=== PATIENT | female | born 1990 | race African-American/Black ===

== ENCOUNTER 2016-07-20 21:12 | Emergency (ER) | payer OTHER ==
[~2016-07-20] VITALS: Ht 165.1 cm; Wt 77.1 kg
[2016-07-20] MEDS: NS 1,000 ML IV ONE (21:50)
[2016-07-20 21:51] LABS: BASO % 0.7 % (0.0-1.0); EOS # 0.2 K/mm3 (0.0-0.50); EOS % 2.9 % (0.0-3.0); LARGE UNSTAINED CELL # 0.1 K/mm3 (0.0-0.4); LYMPH # 3.8 K/mm3 (1.5-6.5); LYMPH % 53.4 % (24.0-44.0); MEAN CORPUSCULAR HEMOGLOBIN 30.1 pg (27.0-33.0); MEAN CORPUSCULAR HGB CONC 33.1 g/dl (32.0-36.5); MEAN CORPUSCULAR VOLUME 90.9 fl (80.0-96.0); MONO # 0.3 K/mm3 (0.0-0.8); MONO % 4.3 % (0.0-5.0); NEUTROPHILS # 2.5 K/mm3 (1.8-7.7); NEUTROPHILS % 36.8 % (36.0-66.0); PLATELET COUNT, AUTOMATED 277 k/mm3 (150-450); RED CELL DISTRIBUTION WIDTH 13.2 % (11.5-14.5); WHITE BLOOD COUNT 6.8 K/mm3 (4.0-10.0)
[2016-07-20 22:02] LABS: ANION GAP 6 MEQ/L (8-16); BLOOD UREA NITROGEN 14 MG/DL (7-18); CALCIUM LEVEL 8.9 MG/DL (8.5-10.1); CARBON DIOXIDE LEVEL 27 MEQ/L (21-32); CHLORIDE LEVEL 106 MEQ/L (98-107); CREATININE FOR GFR 0.76 MG/DL (0.55-1.02); GLOMERULAR FILTRATION RATE > 60.0 (>60); GLUCOSE, FASTING 158 MG/DL (70-105); POTASSIUM SERUM 3.8 MEQ/L (3.5-5.1); SODIUM LEVEL 139 MEQ/L (136-145)
[2016-07-20 23:33] VITALS: BP 106/58
--- NOTE | 2016-07-21 08:16 | REP ---
Portable chest: The lung hidalgo are clear. The cardiac size is normal. The felicia, mediastinum, and bony thorax are unremarkable. Impression: Negative portable chest. Signed by Joel Dobbs MD 07/21/2016 08:09 A
--- NOTE | 2016-07-21 18:30 | ECGEPIP ---
Stationary ECG Study [facility] - ED Test Date: 2016-07-20 Pat Name: AILIN DA SILVA Department: Room: - Gender: F Warp Yarn Sorter: [facility] : 1990 Requested By: KEHINDE SHANKAR Order Number: [id number] Reading MD: Hector Tanner Measurements Intervals [place] Rate: 72 P: 51 [place]: 161 QRS: 20 QRSD: 86 T: 32 QT: 369 QTc: 406 Interpretive Statements SINUS RHYTHM WITH SINUS ARRHYTHMIA POSSIBLE LAE NONSPECIFIC T-WAVE ABNORMALITY NO PRIORS Electronically Signed On 07-21-2016 18:30:02 EDT by Hector Tanner
== END 2016-07-20 23:41 | disposition home or self-care (01) ==
LOC: EDBD 21:12 → M ED 21:31
DX: S46.312A Strain of muscle, fascia and tendon of triceps, left arm, initial encounter (principal); X58.XXXA Exposure to other specified factors, initial encounter; Y92.89 Other specified places as the place of occurrence of the external cause; Y93.89 Activity, other specified; Y99.9 Unspecified external cause status

== ENCOUNTER 2016-10-05 14:50 | Inpatient (IN) | payer OTHER ==
[~2016-10-05] VITALS: Ht 165.1 cm; Wt 7.0 kg
[2016-10-05 15:44] LABS: MEAN CORPUSCULAR HEMOGLOBIN 30.8 pg (27.0-33.0); MEAN CORPUSCULAR HGB CONC 34.1 g/dl (32.0-36.5); MEAN CORPUSCULAR VOLUME 90.4 fl (80.0-96.0); RED CELL DISTRIBUTION WIDTH 13.4 % (11.5-14.5); WHITE BLOOD COUNT 5.4 K/mm3 (4.0-10.0)
[2016-10-05 16:06] LABS: METHADONE URINE NEGATIVE (NEGATIVE)
[2016-10-05 16:11] LABS: CONTROL LINE HCG INT CTR LINE PRESENT
[2016-10-05 16:15] LABS: ALBUMIN/GLOBULIN RATIO 1.21 (1.00-1.93); ALKALINE PHOSPHATASE 65 U/L (45-117); ALT/SGPT 24 U/L (12-78); ANION GAP 5 MEQ/L (8-16); AST/SGOT 25 U/L (15-37); BILIRUBIN,DIRECT 0.2 MG/DL (0.0-0.2); BILIRUBIN,TOTAL 0.6 MG/DL (0.2-1.0); BLOOD UREA NITROGEN 10 MG/DL (7-18); CARBON DIOXIDE LEVEL 28 MEQ/L (21-32); CHLORIDE LEVEL 107 MEQ/L (98-107); CREATININE FOR GFR 0.76 MG/DL (0.55-1.02); GLOMERULAR FILTRATION RATE > 60.0 (>60); GLUCOSE, FASTING 75 MG/DL (70-105); POTASSIUM SERUM 4.2 MEQ/L (3.5-5.1); SODIUM LEVEL 140 MEQ/L (136-145); TOTAL PROTEIN 7.3 GM/DL (6.4-8.2)
[2016-10-05 20:03] VITALS: BP 133/85
[2016-10-05] MEDS ORDERED: ACETAMINOPHEN TAB 650MG DOSE (2X325MG) PO PRN (20:45)
[2016-10-05] MEDS ORDERED: MOM 30ML SUSPENSION UDC PO PRN (20:45)
[2016-10-05] MEDS ORDERED: traZODone 50 MG TAB PO PRN (20:45)
[2016-10-05] MEDS ORDERED: MAALOX 30 ML SUSP *UDC PO PRN (20:45)
[2016-10-06 06:24] VITALS: BP 138/72
--- NOTE | 2016-10-06 09:16 | HPEPDOC ---
Medical History and Physical Date of Admission Oct 05, 2016 at 18:57 History and Physical PCP: [facility] ATTENDING: Dr. iRtesh Ferro HPI: 26yoF admitted to [facility] for MHE, being medically examined today. No acute medical complaints today. Denies any fevers, chills, weakness, fatigue, ROCK, CP, SOB, cough, palpitations, abdominal pain, N/V/D or changes in bowel or bladder habits. PMHx: Denies PSHX: Denies SOCHX: Resides in: [place], from [place] Marital Status: Kids: None Employment: Active duty Tobacco use: Denies ETOH: Denies Illicit Drugs: Denies IV Drug Use: Denies Tattoos done unprofessionally: Denies FAMHX: Mother: Alive, well Father: Alive, unknown Siblings: Alive, well Children: None Unexpected deaths due to medical reasons: None. ROS: As noted in HPI, otherwise 11pt ROS of systems reviewed and remarkable only for LMP 09/15/16 PE: GEN: 26 yo F, appears stated age. Well-nourished, well developed. No acute distress. Alert and oriented x 3. Pleasant, interactive. HEENT: Normocephalic, atraumatic. Pupils are equal, round, and reactive to light. Extraocular movements are intact. No nystagmus appreciated. Sclera are nonicteric. Conjunctiva without injection. Nose midline. Nasal turbinates without bogginess. EACs both patent BL. TMs both visualized and montiel with good cone of light, no bulging or erythema. No facial asymmetry. Moist mucous membranes. Dentition fair. Pharynx pink and moist, no cobblestoning. Neck supple , trachea midline. No lymphadenopathy or thyromegaly appreciated. CHEST: Regular rate and rhythm, +S1, +S2 LUNGS: Clear to auscultation bilaterally. No wheezes, rales, or rhonchi. Breathing appears symmetric and easy. Patient is speaking in full sentences. No accessory muscle use. ABD: Round, soft, non-tender, non-distended. +Bowel sounds throughout. No rebound or guarding. No costovertebral angle tenderness. EXT: Pulses 2+ bilaterally dorsalis pedis and radial. No lower extremity edema appreciated. SKIN: Effie, dry, warm. Capillary refill <2sec. No rashes. NEURO: Alert and oriented x 3. Cranial nerves III-XII are intact. No focal deficits appreciated. EK07/20/16 SINUS RHYTHM WITH SINUS ARRHYTHMIA POSSIBLE LAE NONSPECIFIC T-WAVE ABNORMALITY NO PRIORS. A&P: 26yoF admitted to [facility] for MHE 1. Psych. Plan per Psychiatry. EKG on file. 2. Follow up. With PCP on discharge. 3. Staff member Marcia KINGSLEY present throughout exam. Vital Signs Vital Signs Date Time Temp Pulse Resp B/P (MAP) Pulse Ox O2 Delivery O2 Flow Rate FiO2 10/06/16 06:24 99.7 79 16 138/72 (94) Room Air 10/05/16 19:50 99 Laboratory Data Labs 24H Laboratory Tests 2 10/05/16 15:23: Anion Gap 5L, Glomerular Filtration Rate > 60.0, Calcium Level 9.0, Aspartate Amino Transf (AST/SGOT) 25, Alanine Aminotransferase (ALT/SGPT) 24, Alkaline Phosphatase 65, Total Bilirubin 0.6, Direct Bilirubin 0.2, Total Protein 7.3, Albumin 4.0, Albumin/Globulin Ratio 1.21, Thyroid Stimulating Hormone (TSH) 0.508, Human Chorionic Gonadotropin, Qual NEGATIVE, Salicylates Level < 1.7L, Urine Amphetamines Screen NEGATIVE, Urine Benzodiazepines Screen NEGATIVE, Urine Opiates Screen NEGATIVE, Urine Methadone Screen NEGATIVE, Acetaminophen Level < 2.0L, Urine Barbiturates Screen NEGATIVE, Urine Phencyclidine Screen NEGATIVE, Urine Cocaine Metabolite Screen NEGATIVE, Urine Cannabinoids Screen NEGATIVE, Ethyl Alcohol Level < 0.003 CBC/BMP Laboratory Tests 10/05/16 15:23 Red Blood Count 4.30, Mean Corpuscular Volume 90.4, Mean Corpuscular Hemoglobin 30.8, Mean Corpuscular Hemoglobin Concent 34.1, Red Cell Distribution Width 13.4 Home Medications No Active Prescriptions or Reported Meds Allergies Coded Allergies: Tyson (Verified Allergy, Unknown, 07/20/16) Lactose Intolerance (GI) (Verified Allergy, Unknown, 07/20/16) Lynda Talbot Oct 06, 2016 09:16
[2016-10-06 18:00] VITALS: BP 119/71
--- NOTE | 2016-10-06 21:24 | MHHPEPDOC ---
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 Patient denies history of prior psychiatric hospitalizations and denies history of suicide attempts, suicidal ideation, or self-injurious behavior. Patient denies experiencing symptoms of anxiety, denies depression but notes she feels "hurt" regarding recent separation from , denies suicidal or homicidal ideation, denies auditory or visual hallucinations, denies urge to engage in self-injurious behavior. Patient denies history of discomfort in social settings, denies panic and impulse control challenges, further denies history of compulsive behavior. Patient denies history of aggression or agitation, unsanctioned violence, and further denies having access to weapons in the home. Patient denies symptoms of reexperiencing, avoidance, and hypervigilance, denies hypomania or germania, indicates appetite is stable, describes sleep as "fine." Patient indicates she has been in the [employer] for 4 years, stationed at [employer] for 3 years, works as an account resolution specialist, denies history of deployment, denies tension with chain of command, adds she has plans to attend college after she exits the [employer]. PSYCHIATRIC REVIEW OF SYSTEMS: Affective: Stable, generally euthymic Anxiety: Denies Trauma: Denies Psychosis: Denies Personally: Pleasant cooperative, easily engaged PAST PSYCHIATRIC HISTORY: Prior Psychiatric Disorder: Denies Outpatient Treatment: [facility] for couples counseling, states that attended 2 for individual counseling Suicidal/Self injurious: Denies Psychotropic Medication History: Denies ALLERGIES: Please see below. 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, currently works as account resolution specialist for [employer] Legal: Denies Martial: Has been in relationship with for 4 years, 3 years, no children, indicates is wanting a divorce Economic: Denies challenges Supports: Indicates has supportive family and friends Abuse/trauma: Denies SUBSTANCE ABUSE HISTORY: Denies PAST MEDICAL/SURGICAL HISTORY: Denies history of chronic health problems other than has permanent profile for right knee pain, denies history of seizure or head injury Labs on admission indicated low anion gap HCG negative UDS negative EK07/20/16 SINUS RHYTHM WITH SINUS ARRHYTHMIA POSSIBLE LAE NONSPECIFIC T-WAVE ABNORMALITY NO PRIORS. VITAL SIGNS: B/P 133/85, P 81, R 18, T 98.3. 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 Speech: Of normal rate, rhythm, volume, spontaneous, coherent. Thought processes: Linear, logical, rational, goal-directed. Thought content: Rational, logical, no tangentiality or paranoia noted, no perseveration. Abstract reasoning and computation: Appear intact. Description of associations: Intact. Description of abnormal or psychotic thoughts: Denies suicidal or homicidal ideation, denies auditory or visual hallucinations, does not appear to be responding to internal stimuli, does not endorse bizarre paranoid ideation, denies preoccupation with violence or obsessions. Judgment: Limited. Insight: Fair. Orientation: A and O 3. Recent and remote memory: Appear intact. Attention span and concentration: Within normal limits. Fund of knowledge: Adequate. Mood: "Worrisome because of everything that's going on." Patient appears depressed and anxious, no mood lability noted Affect: Constricted. DIAGNOSES: Adjustment disorder, rule out MDD ASSESSMENT: Patient appears to be adjusting to unit, has been visible, selectively social, cooperative with staff, participating in unit programming, and has presented with no behavior management challenges. Patient states 's interpretation of text message was "a misunderstanding," denies having been suicidal. Patient minimizes events which led to current hospitalization, is able to express some remorse with regard to status of current relationship, minimizes impact of 's decision to terminate marriage on her emotional state. Medication options were reviewed with patient who states she does not want to take psychotropic medications citing lack of need, further denies need for sleep aid. Will monitor patient's need for medication and will evaluate patient safety, resolution of what may have been suicidal ideation, and discharge readiness. dispute coordinator is pursuing background information from [employer] and will communicate with [employer] in preparation for discharge. Patient indicates when prepared for discharge she plans to return to [employer], states she is willing to participate in outpatient psychotherapy through [facility] and/or return to [facility] for ongoing outpatient psychotherapy. PROBLEM LIST: Possible suicidal ideation Anxiety Depression Relationship strain Ineffective coping INITIAL TREATMENT PLAN: 1. Patient was admitted on a 9.39 2. Complete history was obtained. 3. With patients permission, family will be contacted and database will be expanded. 4. Patients medication regimen will be reviewed and changed accordingly. 5. Patient will be provided with protected environment. 6. Patient will be treated with individual, group, and milieu therapies. 7. Patient will receive supportive psych-education. 8. Discharge planning will commence immediately. 9. Outpatient follow-up treatment will be strongly recommended. 10. The initial treatment plan will focus initially on: * Depression. * Risk for suicide. ESTIMATED LENGTH OF STAY: 5-7 DAYS. TIME SPENT COUNSELING AND COORDINATING INITIAL CARE: 50 minutes. Medications No Active Prescriptions or Reported Meds Allergies Coded Allergies: Tyson (Verified Allergy, Unknown, 07/20/16) Lactose Intolerance (GI) (Verified Allergy, Unknown, 07/20/16) Shaista Sanchez Oct 06, 2016 21:24
[2016-10-07 06:45] VITALS: BP 123/58
--- NOTE | 2016-10-07 09:21 | MHIPNPDOC ---
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 Patient denies ever being suicidal, denies history of prior psychiatric inpatient treatment, denies history of prior suicidal ideation or suicide attempt. Gasket Notcher met with patient today to assess treatment progress on inpatient unit. Patient denies symptoms of anxiety and depression, denies suicidal and homicidal ideation, denies auditory and visual hallucinations, denies urge to engage in self-injurious behavior. Patient reiterates today that text message sent to was not a suicidal threat, denies ever suicidal dating, "I know the relationship is over and I'm dealing with it." Patient indicates she and have communicated since she's been in the hospital, states conversation was "civil." Patient continues to deny need for psychotropic medications, states she is sleeping well, describes appetite as "good," denies challenges with energy level or concentration and focus. Patient indicates she is attending most groups and feels comfortable on unit. Patient denies symptoms of physical pain and presents with no signs of acute distress at time of interaction. VITALS: See below NEW TEST RESULTS: No new results MEDICAL/SURGICAL HISTORY: Denies history of chronic health problems other than has permanent profile for right knee pain, denies history of seizure or head injury Labs on admission indicated low anion gap HCG negative UDS negative EK07/20/16 SINUS RHYTHM WITH SINUS ARRHYTHMIA POSSIBLE LAE NONSPECIFIC T-WAVE ABNORMALITY NO PRIORS. 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 Speech: Of normal rate, rhythm, volume, spontaneous, coherent. Thought processes: Linear, logical, rational, goal-directed. Thought content: Rational, logical, no tangentiality or paranoia noted, no perseveration. Abstract reasoning and computation: Appear intact. Description of associations: Intact. Description of abnormal or psychotic thoughts: Denies suicidal or homicidal ideation, denies auditory or visual hallucinations, does not appear to be responding to internal stimuli, does not endorse bizarre paranoid ideation, denies preoccupation with violence or obsessions. Judgment: Limited Insight: Fair, some improvement noted Orientation: A and O 3. Recent and remote memory: Appear intact. Attention span and concentration: Within normal limits. Fund of knowledge: Adequate. Mood: "A little better today, not as worried." Patient appears less depressed and less anxious, no mood lability noted Affect: Constricted, some brightening, congruent with mood DIAGNOSES: Adjustment disorder, rule out MDD ASSESSMENT: Patient appears to be adjusting to unit, has been visible, selectively social, cooperative with staff, participating in unit programming, and has presented with no behavior management challenges. Patient reiterates today that her 's interpretation of text message was "a misunderstanding," denies having been suicidal. Patient continues to minimize events which led to current hospitalization, is somewhat able to verbalize feelings associated with 's desire for divorce, continues to minimize emotional impact of 's desire to end marriage. Medication options were again reviewed with patient who states she does not want to take psychotropic medications citing lack of need, also continues to deny need for sleep aid. Will attended monitor patient's need for medication and will evaluate patient safety, resolution of what may have been suicidal ideation, and discharge readiness. nursing information systems coordinator continues to pursue background information from [place] and will communicate with [place] in preparation for discharge planning. Patient indicates when prepared for discharge she plans to return to [place], states she is willing to participate in outpatient psychotherapy through [facility] and/or return to [facility] for ongoing outpatient psychotherapy. MANAGEMENT PLAN: Encourage patient to consider taking psychotropic medication to address symptoms if warranted Maintain safety precautions Patient to attend groups and participate in unit programming to develop coping strategies Engage patient in discharge planning process and arrange meeting with command to evaluate safe discharge planning when appropriate Patient to follow up with [place] PC[facility] upon discharge TIME SPENT: 35 minutes Vital Signs Vital Signs Date Time Temp Pulse Resp B/P (MAP) Pulse Ox O2 Delivery O2 Flow Rate FiO2 10/07/16 06:45 99.2 88 16 123/58 (79) 10/06/16 06:24 Room Air 10/05/16 19:50 99 Current Medications Current Medications Acetaminophen (Tylenol Tab) 650 mg Q6HP PRN PO HEADACHE or DISCOMFORT; Start at 20:45; Stop 11/04/16 at 20:44 Al Hydrox/Mg Hydrox/Simethicone (Mylanta) 30 ml Q4HP PRN PO HEARTBURN/ INDIGESTION; Start 10/05/16 at 20:45; Stop 11/04/16 at 20:44 Home Med (Med Rec Complete!) ASDIRECTED XX ; Start 10/05/16 at 18:00; Stop at 18:00; Status DC Magnesium Hydroxide (Milk Of Magnesia) 30 ml DAILYPRN PRN PO CONSTIPATION; Start 10/05/16 at 20:45; Stop 11/04/16 at 20:44 Trazodone HCl (Desyrel) 50 mg QHSP PRN PO INSOMNIA; Start 10/05/16 at 20:45; Stop 11/04/16 at 20:44 Allergies Coded Allergies: Tyson (Verified Allergy, Unknown, 07/20/16) Lactose Intolerance (GI) (Verified Allergy, Unknown, 07/20/16) Shaista Sanchez Oct 07, 2016 09:21
[2016-10-07 18:00] VITALS: BP 120/70
[2016-10-08 06:00] VITALS: BP 111/71
[2016-10-08 18:00] VITALS: BP 115/71
[2016-10-09 06:00] VITALS: BP 123/66
--- NOTE | 2016-10-09 11:20 | IPN ---
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 She believes that everything was a misunderstanding because she says that she sent a text message to her which was misinterpreted as a suicidal threat. She reported that she is from her and that she is aware that the relationship is over, but she says that what she texted was that she was asking her to garbage pick up worker all her clothes and things and personal belongings and take them all with her. Evidently, her misinterpreted the situation as she misinterpreted the text message as a suicidal threat and reported it and for that reason she was brought to the emergency room. The patient currently denies suicidal ideation, homicidal ideation, auditory or visual hallucinations, and also denies delusions. She was not seen responding to internal stimuli. Her mood and affect were normal, euthymic. Her affect was reactive, appropriate, full range. She was not seen depressed or anxious. The patient is not on psychotropic medication. She only has received trazodone 50 mg by mouth at bedtime as needed for insomnia, but she reports that she has not taken it for one single night that she has been in there. The patient is awaiting to be discharged and going back to [place]. She says that she has a supportive network, friends, peers, and relatives, and she is not afraid that she will be feeling lonely or unsupported. At the time of the evaluation, the patient was stable and not a danger to self or others. Will follow her up on 10/09/2016.
[2016-10-09 18:00] VITALS: BP 131/74
--- NOTE | 2016-10-09 18:33 | MHIPNPDOC ---
[facility] Progress Note Progress Note DATE OF SERVICE: 10/09/16 INTERVAL HISTORY: Medication Side effects: is on no psychotropic medications Behavior/events: no events overnight, has been friendly and amenable with staff Group Attendance: since groups at times Psychiatric Symptoms: reports that she's been excited about discharge tomorrow, the symptoms of depression or anxiety at this time. She states she has no complaints, she is not interested in starting medications at this time as she feels therapy would be the best for her. VITAL SIGNS: See below. NEW TEST RESULTS: See below CURRENT MEDICATIONS: See below. MENTAL STATUS EXAMINATION: General: Well dressed with good hygiene Speech: Spontaneous and fluid Thought processes: Linear and logical Thought content: future orientated, excited about discharge Abstract reasoning, and computation: Intact Description of associations: Intact Description of abnormal or psychotic thoughts:Denies any suicidal or homicidal ideation. Denies any auditory or visual hallucinations. Does not appear to be responding to internal stimuli. Does not appear to be endorsing any bizarre or paranoid ideation. Judgment: fair Insight: limited Orientation: Alert and orientated 3 Recent and remote memory: Intact Attention span and concentration: Intact Fund of knowledge: Adequate Mood: "okay" Affect: Euthymic with a full range DIAGNOSES: 1. Adjustment disorder, severe, with disruption mood and conduct. ASSESSMENT: improving MANAGEMENT PLAN: Medications: no medications at this time per patient's request Psychotherapy: encourage group attendance Social: prospective discharge tomorrow Misc: none Disposition: The patient will need of further inpatient stay to address disposition needs. TIME SPENT: 15 minutes. Vital Signs Vital Signs Date Time Temp Pulse Resp B/P (MAP) Pulse Ox O2 Delivery O2 Flow Rate FiO2 10/09/16 18:00 99.2 83 16 131/74 (93) 10/06/16 06:24 Room Air 10/05/16 19:50 99 Current Medications Current Medications Acetaminophen (Tylenol Tab) 650 mg Q6HP PRN PO HEADACHE or DISCOMFORT; Start at 20:45; Stop 11/04/16 at 20:44 Al Hydrox/Mg Hydrox/Simethicone (Mylanta) 30 ml Q4HP PRN PO HEARTBURN/ INDIGESTION; Start 10/05/16 at 20:45; Stop 11/04/16 at 20:44 Home Med (Med Rec Complete!) ASDIRECTED XX ; Start 10/05/16 at 18:00; Stop at 18:00; Status DC Magnesium Hydroxide (Milk Of Magnesia) 30 ml DAILYPRN PRN PO CONSTIPATION; Start 10/05/16 at 20:45; Stop 11/04/16 at 20:44 Trazodone HCl (Desyrel) 50 mg QHSP PRN PO INSOMNIA; Start 10/05/16 at 20:45; Stop 11/04/16 at 20:44 Allergies Coded Allergies: Tyson (Verified Allergy, Unknown, 07/20/16) Lactose Intolerance (GI) (Verified Allergy, Unknown, 07/20/16) GME ATTESTATION My preceptor for this patient encounter was physically present in the building during the encounter and was fully available. As needed, all aspects of the patient interview, examination, medical decision making process, and medical care plan development were reviewed and approved by the preceptor. Preceptor is aware and concurs with the plan as stated in the body of this note and will attest to such by his/her cosignature. JUAN DURBIN DO Oct 09, 2016 18:33
[2016-10-10 06:19] VITALS: BP 129/74
--- NOTE | 2016-10-10 08:55 | MHDSPDOC ---
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 Patient denies history of prior psychiatric hospitalizations and denies history of suicide attempts, suicidal ideation, or self-injurious behavior. Patient denies experiencing symptoms of anxiety, denies depression but notes she feels "hurt" regarding recent separation from , denies suicidal or homicidal ideation, denies auditory or visual hallucinations, denies urge to engage in self-injurious behavior. Patient denies history of discomfort in social settings, denies panic and impulse control challenges, further denies history of compulsive behavior. Patient denies history of aggression or agitation, unsanctioned violence, and further denies having access to weapons in the home. Patient denies symptoms of reexperiencing, avoidance, and hypervigilance, denies hypomania or germania, indicates appetite is stable, describes sleep as "fine." Patient indicates she has been in the [employer] for 4 years, stationed at [employer] for 3 years, works as an revenue specialist, denies history of deployment, denies tension with chain of command, adds she has plans to attend college after she exits the [employer]. PAST PSYCHIATRIC HISTORY: Prior Psychiatric Disorder: Denies Outpatient Treatment: [facility] for couples counseling, states that attended 2 for individual counseling Suicidal/Self injurious: Denies Psychotropic Medication History: Denies MEDICAL/SURGICAL HISTORY: Denies history of chronic health problems other than has permanent profile for right knee pain, denies history of seizure or head injury Labs on admission indicated low anion gap [id number] SINUS RHYTHM WITH SINUS ARRHYTHMIA POSSIBLE LAE NONSPECIFIC T-WAVE ABNORMALITY NO PRIORS. 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 Patient has consistently indicated that her 's interpretation of text message was " a misunderstanding," denies ever having been suicidal. Patient is no longer minimizing behavior and events which preceded current hospitalization and has developed insight during her stay and is able to more effectively discuss feelings and emotions associated with ending of relationship with . Patient has been sleeping well, reports having good appetite, indicates energy level and concentration focus are stable. Patient denies irritability, agitation, impulsivity, and mood lability. Patient has been educated on medication options and has consistently denied need for psychotropic medications. Patient denies symptoms of anxiety and depression, denies suicidal and homicidal ideation, denies auditory and visual hallucinations, and denies urge to engage in self- injurious behavior. Patient's has visited her in hospital, notes visitation has gone well, adds is now moved out of the home, and patient adds she feels "better" about current status of relationship. Patient is future oriented and goal-directed, indicates she intends to exit [employer] in September,, states she will then return to [place] to live close to family and friends and attend college to prepare for IT career. Patient is requesting discharge today with plan to return to [place] to participate in outpatient behavioral health , is aware she will undergo safety check and then will resume outpatient psychotherapy with [facility]. Patient verbalizes understanding of and agreement with discharge plan. 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 Speech: Of normal rate, rhythm, volume, spontaneous, coherent. Thought processes: Linear, logical, rational, goal-directed. Thought content: Rational, logical, no tangentiality or paranoia noted, no perseveration. Abstract reasoning and computation: Appear intact. Description of associations: Intact. Description of abnormal or psychotic thoughts: Denies suicidal or homicidal ideation, denies auditory or visual hallucinations, does not appear to be responding to internal stimuli, does not endorse bizarre paranoid ideation, denies preoccupation with violence or obsessions. Judgment: Adequate Insight: Adequate, has improved during treatment Orientation: A and O 3. Recent and remote memory: Intact. Attention span and concentration: Within normal limits. Fund of knowledge: Adequate. Mood: "I feel good." Patient denies anxiety and depression, no mood lability noted Affect: Full range, brightens frequently and appropriately, congruent with mood CONDITION ON DISCHARGE: Stable, no suicidal or homicidal ideation DIAGNOSES ON DISCHARGE: Adjustment disorder with depressed mood, rule out MDD MEDICATIONS ON DISCHARGE: See below. Patient has declined psychotropic medications. FOLLOW UP PLAN: Patient to discharge today and to be transported [facility] by command for safety evaluation and to resume outpatient psychotherapy through [facility]/ Patient to follow up with [facility] within 5-7 days of discharge TIME SPENT: 25 minutes Vital Signs/I&Os Vital Signs Date Time Temp Pulse Resp B/P (MAP) Pulse Ox O2 Delivery O2 Flow Rate FiO2 10/10/16 06:19 98.7 80 16 129/74 (92) Room Air 10/05/16 19:50 99 Medications No Active Prescriptions or Reported Meds Allergies Coded Allergies: Tyson (Verified Allergy, Unknown, 07/20/16) Lactose Intolerance (GI) (Verified Allergy, Unknown, 07/20/16) Shaista Sanchez Oct 10, 2016 08:55
== END 2016-10-10 12:40 | disposition home or self-care (01) | DRG 881 ==
LOC: M ED 17:37 → M ED INP 18:57 → M PSY 19:57
PROVIDERS: ADMIT Psychiatry & Neurology Psychiatry; ATTEND Psychiatry & Neurology Psychiatry
DX: F43.21 Adjustment disorder with depressed mood (principal); F32.9 Major depressive disorder, single episode, unspecified; E73.9 Lactose intolerance, unspecified; Z91.018 Allergy to other foods

== ENCOUNTER 2017-01-30 17:14 | Emergency (ER) | payer OTHER ==
[~2017-01-30] VITALS: Ht 165.1 cm; Wt 75.4 kg
[2017-01-30 17:15] VITALS: BP 126/77
[2017-01-30] MEDS: METOCLOPRAMIDE 10 MG TAB PO ONE (18:01)
[2017-01-30] MEDS: ACETAMINOPHEN 325 MG TAB PO ONE (18:02)
--- NOTE | 2017-01-30 18:11 | REP ---
CT of the brain without IV contrast: There is no hemorrhage. There is no edema, mass effect or midline shift. Ventricles are normal size and midline. The visualized paranasal sinuses and mastoid air cells are clear. Impression: Negative CT study of the brain. Sign taking Signed by Joel Dobbs MD 01/30/2017 06:03 P
[2017-01-30] MEDS ORDERED: IBUP-1022 PO (18:20)
== END 2017-01-30 18:39 | disposition home or self-care (01) ==
LOC: M ED 17:14
DX: G44.209 Tension-type headache, unspecified, not intractable (principal); Z72.0 Tobacco use

== ENCOUNTER → 2017-04-21 | Outpatient (CLI) | payer OTHER | LOC: M RAD 12:48 | DX: N63.0 Unspecified lump in unspecified breast (principal) ==

== ENCOUNTER → 2017-09-19 | Outpatient (CLI) | payer OTHER ==
[~2017-09-19] MED LIST: ISOVUE-370 76% 100ML VIAL (Q9967) As Ordered
== END ==
LOC: M RAD 15:44
DX: R19.04 Left lower quadrant abdominal swelling, mass and lump (principal)
CPT/HCPCS: Q9967

== ENCOUNTER 2017-11-28 06:32 | Day surgery (SDC) | payer OTHER ==
[2017-11-28 07:07] LABS: CONTROL LINE UCG INT CTR LINE PRESENT; URINE PREG TEST NEGATIVE (NEGATIVE)
[2017-11-28] MEDS: LR 1,000 ML IV (07:10)
[2017-11-28] MEDS ORDERED: dexameTHASONE 4 MG/ML 1ML VIAL (J1100) As Ordered (07:16)
[2017-11-28] MEDS ORDERED: KETOROLAC 60 MG/2 ML VIAL (J1885) As Ordered (07:16)
[2017-11-28] MEDS ORDERED: LIDOCAINE 2% INJ 100 MG/5 ML SDV (FOR ANES.) As Ordered (07:16)
[2017-11-28] MEDS ORDERED: PROPOFOL 200 MG/20 ML VIAL As Ordered ×2 (07:16→07:46)
[2017-11-28] MEDS ORDERED: ONDANSETRON 4MG/2ML VIAL (J2405) As Ordered (07:16)
[2017-11-28] MEDS ORDERED: fentaNYL 100 MCG/2 ML INJECTION (J3010) As Ordered (07:17)
[2017-11-28] MEDS ORDERED: MIDAZOLAM INJ 2 MG/2 ML VIAL (J2250) As Ordered (07:17)
[2017-11-28] MEDS ORDERED: BUPIVACAINE/EPIN 0.25% 30 ML VIAL As Ordered (07:55)
[2017-11-28] MEDS ORDERED: KETAMINE HCL 200 MG/20 ML VIAL As Ordered (08:01)
[2017-11-28] MEDS ORDERED: ePHEDrine SULFATE 25 MG/5 ML(5MG/ML) SYRINGE As Ordered (08:05)
[2017-11-28] MEDS ORDERED: ONDANSETRON 4MG/2ML VIAL (J2405) IV (08:45)
[2017-11-28] MEDS ORDERED: PERCOCET 5MG/325MG TAB PO (08:45)
== END 2017-11-28 09:11 | disposition home or self-care (01) ==
LOC: M SDC 06:32
DX: D17.1 Benign lipomatous neoplasm of skin and subcutaneous tissue of trunk (principal); E73.9 Lactose intolerance, unspecified; Z91.018 Allergy to other foods; Z72.0 Tobacco use
CPT/HCPCS: 21552